=== PATIENT | male | born 1965 | race Caucasian/White ===

== ENCOUNTER → 2016-06-26 | Outpatient (CLI) | payer OTHER ==
--- NOTE | 2016-06-26 15:17 | PDCARST ---
CAR Stress Test Results Type of Stress Test: Nuclear TM stress test Indication: chest pain Description of Procedure: After informed consent was obtained, pt was established to ECG, HR, BP, and oximetry monitoring. At b/l, pt is in SR with ULI in III and AVR, and Twi I, II, AVL, V2. BP was 130/82, HR 90, and O2 sat of 97% RA. Pt exercised for a total of 9 min, peak BP 178/82, and pt achieved HR of 172 bpm which is 100% of MPHR for age. Pt had cp at baseline which has been present for several weeks. This may have mildly worsened with exertion. Pt had 1 mm STD with exertion that quickly normalized in recovery. No arrhythmias. Impression: Baseline ECG abnormalities with slight worsening with exertion but normalization in recovery. Normal HR and BP response. Conclusion: Await nuclear images.
== END ==
LOC: FIMAGING 13:28
PROVIDERS: ATTEND Nurse Practitioner Adult Health
DX: E78.5 Hyperlipidemia, unspecified (principal); I25.10 Atherosclerotic heart disease of native coronary artery without angina pectoris
CPT/HCPCS: A9500

== ENCOUNTER 2016-07-06 08:47 | Day surgery (SDC) | payer OTHER ==
[2016-07-06] MEDS ORDERED: FAMOTIDINE 20 MG TAB PO ONE (08:53)
[2016-07-06] MEDS ORDERED: diphenhydrAMINE 25 MG CAP PO ONE ×2 (08:53→09:16)
[2016-07-06] MEDS ORDERED: DIAZEPAM 5 MG TAB PO ONE (08:53)
[2016-07-06] MEDS ORDERED: NS 1,000 ML IV ONE (08:53)
[2016-07-06] MEDS ORDERED: ASPIRIN EC 325 MG TAB PO ONE ×2 (08:53→09:16)
--- NOTE | 2016-07-06 09:14 | CPEKG ---
Heart Rate: 79 RR Interval: 759 P-R Interval: 168 QRSD Interval: 88 QT Interval: 400 QTC Interval: 459 P [place]: 40 QRS [place]: 12 T Wave [place]: 155 EKG Severity - ABNORMAL ECG - EKG Impression: SINUS RHYTHM EKG Impression: LVH WITH SECONDARY REPOLARIZATION ABNORMALITY EKG Impression: Possible left atrial abnormality EKG Impression: Less pronounced ST-T wave abnormalities compared to February 03, 2009 Electronically Signed By: Tyson Soto 06-Jul-2016 15:34:06
[2016-07-06] MEDS ORDERED: DIAZEPAM 5 MG TAB ONE (09:16)
[2016-07-06] MEDS ORDERED: FAMOTIDINE 20 MG TAB ONE (09:16)
[2016-07-06 09:33] LABS: % IMMATURE GRANULYOCYTES 0.5 % (0.0-1.1); ABSOLUTE IMMATURE GRANULOCYTES 0.04 10^3/uL (0.00-0.10); ADD DIFF? NO; ADD MORPH? NO; ADD SCAN? NO; ATYPICAL LYMPHOCYTE FLAG 10 (0-99); FRAGMENT RBC FLAG 0 (0-99); HEMATOCRIT 48.1 % (40.0-51.0); HEMOGLOBIN 16.4 g/dL (13.7-17.5); LEFT SHIFT FLG 0 (0-99); LIPEMIA HEMOLYSIS FLAG 90 (0-99); MEAN CELL HEMOGLOBIN 30.7 pg (27.9-34.1); MEAN CELL HEMOGLOBIN CONCENTR. 34.1 g/dL (32.4-36.7); MEAN CELL VOLUME 90.1 fL (81.5-99.8); MEAN PLATELET VOLUME 8.5 fL (8.7-11.7); PLATELET CLUMPS FLAG 0 (0-99); PLATELET COUNT 253 10^3/uL (150-400); RED BLOOD CELL COUNT 5.34 10^6/uL (4.40-6.38); RED CELL DISTRIBUTION WIDTH 12.1 % (11.5-15.2)
[2016-07-06 09:36] LABS: INR 1.01 (0.83-1.16); PROTIME(PATIENT) 13.2 SEC (12.0-15.0)
[2016-07-06 09:40] LABS: ANION GAP 14 mEq/L (8-16); CALCIUM 9.9 mg/dL (8.5-10.4); CARBON DIOXIDE 25 mEq/l (22-31); CHLORIDE 106 mEq/L (97-110); CHOLESTEROL 190 mg/dL (140-200); CHOLESTEROL/HDL RATIO 3.17 RATIO (1.00-4.97); CREATININE 1.1 mg/dL (0.7-1.3); GLOMERULAR FILTRATION RATE > 60; GLUCOSE 92 mg/dL (70-100); HIGH DENSITY LIPOPROTEIN 60 mg/dL (40-65); LDL/HDL RATIO 1.88 RATIO (1.00-3.64); LOW DENSITY LIPOPROTEIN 113 mg/dL (70-100); NON-HIGH DENSITY LIPOPROTEIN 130 mg/dL (90-129); POTASSIUM 3.9 mEq/L (3.5-5.2); SODIUM 145 mEq/L (134-144); TRIGLYCERIDE 89 mg/dL (40-150); VERY LOW DENSITY LIPOPROTEINS 17 mg/dL (8-25)
[2016-07-06] MEDS ORDERED: LIDOCAINE 1% 30 ML SDV ONE (10:03)
[2016-07-06] MEDS ORDERED: fentaNYL 100 MCG/2 ML INJ ONE ×2 (10:03→11:31)
[2016-07-06] MEDS ORDERED: IOPAMIDOL (ISOVUE 370) 100 ML BTL IV ONE ×2 (10:04→11:34)
[2016-07-06] MEDS ORDERED: HEPARIN 10,000 UNIT/10 ML MDV ONE (10:04)
[2016-07-06] MEDS ORDERED: MIDAZOLAM 2 MG/2 ML VIAL ONE ×2 (10:04→11:31)
[2016-07-06] MEDS ORDERED: VERAPAMIL 5 MG/2 ML VIAL ONE (10:04)
[2016-07-06] MEDS ORDERED: HYDROCODONE/APAP 5/325 TAB PO PRN (12:56)
[2016-07-06] MEDS ORDERED: OXYCODONE/APAP 5/325 TAB PO PRN (12:56)
[2016-07-06] MEDS ORDERED: NITROGLYCERIN 0.4 MG BTL SL PRN (12:56)
[2016-07-06] MEDS ORDERED: ONDANSETRON 4 MG/2 ML VIAL IVP PRN (12:56)
[2016-07-06] MEDS ORDERED: ATROPINE SULFATE 1 MG/10 ML SYR IVP PRN (12:56)
--- NOTE | 2016-07-06 13:01 | PDDXCAT ---
Diagnostic Cath Note - . Date: 07/06/16 Trial Consultant: Power Indication: other (class 2 chest pain) High-risk criteria on non-invasive testing: stress-induced moderate-size multiple perfusion defects - Materials Left Heart Cath size: 5F Left Heart Cath materials: other - Findings-Left Heart Catheterization LM: unobstructed LAD: mid lad stent 40% in stent restenosis. Improved from prior studies LCX: unobstructed RCA: dominant: Unobstructed Ramus: unobstructed Complications: none Closure method: TR Band Assessment: Stable un-obstructed CAD Plan: medical therapy Patient Problems: Problems Problem Status Onset Coronary artery disease Acute
== END 2016-07-06 15:30 | disposition home or self-care (01) ==
LOC: FCATH 08:47
PROVIDERS: ATTEND Internal Medicine Interventional Cardiology
PROC: 4A023N7 Measurement of Cardiac Sampling and Pressure, Left Heart, Percutaneous Approach (ICD-10-PCS; principal; 2016-07-06)
DX: T82.855A Stenosis of coronary artery stent, initial encounter (principal); E78.5 Hyperlipidemia, unspecified; I25.10 Atherosclerotic heart disease of native coronary artery without angina pectoris; I42.2 Other hypertrophic cardiomyopathy; R03.0 Elevated blood-pressure reading, without diagnosis of hypertension
CPT/HCPCS: 93005; 93454; C1769; C1887; J1200; J1644; J2250; J3010; Q9967